=== PATIENT | female | born 1985 | race American Indian/Alaskan Native ===

== ENCOUNTER 2018-04-03 11:58 | Emergency (ER) | payer BC ==
[2018-04-03 12:53] LABS: HCG Qualitative,Urine Negative (Negative)
[2018-04-03 13:06] LABS: Bacteria,Urine 1+ /HPF (Negative); Bilirubin,Urine NEG (Negative); Blood,Urine NEG (Negative); Color,Urine Yellow (Yellow); Mucus,Urine FEW /HPF; Protein,Urine <15 mg/dL mg/dL (Negative); WBC,Urine < 1.0 /HPF (0.0-6.0)
--- NOTE | 2018-04-03 15:08 | Emergency Department Report ---
Minor Respiratory - HPI Chief Complaint: Earache Stated Complaint: LEFT SIDE OF FACE SWOLLEN Time Seen by Provider: 04/03/18 14:26 Duration: 11 days Pain Location: Ear (bilateral ears) Severity: severe (7/10) Minor Respiratory: Yes Rhinorrhea (congestion and clear drainage), Yes Able to Tolerate Fluids, Yes Ear Pain (lateral), No Sore Throat, No Cough, No Sick Contacts, No Hemoptysis, No Chest Pain, No Shortness of Breath, No Fever Other History: This is a 32-year-old female here complaining of earache that has been going on for over 11 days. She says she went to his doctor and to put her on Bactrim DS for ear infection and also they treated her for other ear infection with ear drop. She said her ears has not suffered in at 7 out of 10 and achy worse with talking and chilling. Denies any trauma to ears. Denies discharge from ears. Denies any drainage from ears. She took Bactrim DS and Motrin without any relief. Pain is exacerbation by eating and talking and and no alleviating factors. She is also saying that she has some facial swelling inside her ear bilaterally. Denies any cough, congestion, shortness of breath, sore throat. She reports nasal congestion and runny nose. Negative fever or chills or nausea or vomiting. Denies any headache. ED Review of Systems ROS: Stated complaint: LEFT SIDE OF FACE SWOLLEN Other details as noted in HPI Constitutional: denies: chills, fever Eyes: denies: eye pain, eye discharge, vision change ENT: ear pain, congestion. denies: throat pain, dental pain, hearing loss, epistaxis Respiratory: denies: cough, shortness of breath, SOB with exertion, SOB at rest , stridor, wheezing Cardiovascular: denies: chest pain, palpitations, edema, paroxysmal nocturnal dyspnea Endocrine: no symptoms reported Gastrointestinal: denies: abdominal pain, nausea, vomiting, diarrhea Musculoskeletal: denies: back pain, joint swelling, arthralgia Skin: denies: rash, lesions Neurological: denies: headache, weakness, vertigo Hematological/Lymphatic: denies: easy bruising ED Past Medical Hx - Past Medical History Previous Medical History?: Yes Hx Hypertension: Yes - Surgical History Past Surgical History?: Yes Additional Surgical History: lumpectomy - Family History Family history: hypertension - Social History Smoking Status: Never Smoker Substance Use Type: None - Medications Home Medications: Home Medications Medication Instructions Recorded Confirmed Last Taken Type Amoxicillin/K Clav Tab [Augmentin 1 tab PO Q12HR #20 tab 04/03/18 Unknown Rx 875MG TAB] Cetirizine HCl [ZyrTEC] 10 mg PO QDAY 21 Days #21 04/03/18 Unknown Rx tab.rapdis Ibuprofen [Motrin] 600 mg PO Q8H PRN #12 tablet 04/03/18 Unknown Rx Minor Respiratory Exam - Exam General: Vital signs noted. No distress. Alert and acting appropriately. This is a 32-year-old female well-nourished well-developed in no acute distress. HEENT: Yes Moist Mucous Membranes (uvula is midline, oral airways 8/10 and tongue is normal.), Yes Rhinorrhea (nasal congestion with erythema and clear drainage), No Pharyngeal Erythema, No Pharyngeal Exudates, No Conjuctival Injection, No Frontal Tenderness, No Maxillary Tenderness Ear: Both TM Bulge, Both TM Erythema (loss of bony landmark), Neither EAC Pain, Neither EAC Discharge Neck: Yes Supple (no C-spine tenderness, full range of motion. No mastoid bone tenderness), No Adenopathy (posterior auricular , bilateral) Lungs: Yes Good Air Exchange (CTAB), No Wheezes, No Ronchi, No Stridor, No Cough , No Labored Respirations, No Retractions, No Use of Accessory Muscles, No Other Abnormal Lung Sounds Heart: Yes Regular (s1,s2), No Murmur Abdomen: Yes Normal Bowel Sounds (in all quadrants), No Tenderness, No Peritoneal Signs Skin: No Rash, No Edema Neurologic: Alert and oriented 3, no GCS 15, normal gait . Romberg and negative pronator drift Musculoskeletal: Unremarkable. No cce. + 2 pulses in all extremities, no neurovascular compromise ED Course Vital Signs 04/03/18 12:13 Temperature 98 F Pulse Rate 99 H Respiratory 16 Rate Blood Pressure 164/101 O2 Sat by Pulse 96 Oximetry - Reevaluation(s) Reevaluation #1: 04/03/18 16:07 Patient given Augmentin 875 mg by mouth 1 and Motrin 800 mg by mouth 1 for ear pain. This will treat ear infection and her ear pain is better. ED Medical Decision Making - Lab Data Lab Results 07/27/18 Range/Units 12:26 Urine Color Yellow (Yellow) Urine Turbidity Clear (Clear) Urine pH 6.0 (5.0-7.0) Ur Specific [place] 1.018 (1.003-1.030) Urine Protein <15 mg/dl (Negative) mg/dL Urine Glucose (UA) 150 (Negative) mg/dL Urine Ketones Neg (Negative) mg/dL Urine Blood Neg (Negative) Urine Nitrite Neg (Negative) Ur Reducing Substances Not Reportable Urine Bilirubin Neg (Negative) Urine Ictotest Not Reportable Urine Urobilinogen 2.0 (<2.0) mg/dL Ur Leukocyte Esterase Neg (Negative) Urine WBC (Auto) < 1.0 (0.0-6.0) /HPF Urine RBC (Auto) 3.0 (0.0-6.0) /HPF U Epithel Cells (Auto) 1.0 (0-13.0) /HPF Urine Bacteria (Auto) 1+ (Negative) /HPF Urine Mucus Few /HPF Urine HCG, Qual Negative (Negative) - Medical Decision Making This is a 32-year-old patient here today reporting that she is having ear pain and was seen and treated with extremity abscess which did not help. She says she also was treated with antibiotic eardrops which cleared up her out ear infection but her inner ear infection she has thinks is still there. Denies any loss of hearing. She is also having nasal congestion. Patient was examined and found to have bilateral TM congested with erythema and loss of bony landmark, negative perforation, bilateral EAC normal exam, there is a mucosa congested, pale with clear drainage. She has postauricular lymphadenopathy bilaterally. Her lungs, mouth and cardiac exam is normal. Extremity exam is normal. Patient has urinalysis and urine test done which were both normal but negative . I discussed lab results, diagnosis and treatment plan. She was started on Motrin and antibiotic and emergency room without any adverse reaction. She understands diagnosis and medication. I am uncertain why she had urinalysis and urine test done and patient does not know why. Bilateral otitis media-started on Augmentin and will continue Augmentin to go home Bilateral or otalgia-Tylenol and Motrin which made. Better and will continue and Motrin to go home. PT educated on medication, diagnosis, treatment plan and need for follow-up. Patient discharged home in stable condition. Vital signs are stable she is afebrile and her pain is controlled. Blood pressure was slightly elevated and upon admission but blood pressure stable at present. She is nontoxic in appearance is that she feels better. Discharge home to follow up with her primary care physician which she says she does have one and 3 days. Patient discharged home with prescription for Zyrtec, Flonase Augmentin and Motrin. - Differential Diagnosis mastoiditis, otitis media, otitis externa, sinusitis, rhinitis Critical care attestation.: If time is entered above; I have spent that time in minutes in the direct care of this critically ill patient, excluding procedure time. ED Disposition Clinical Impression: Otalgia, bilateral Rhinitis Qualifiers: Rhinitis type: unspecified Qualified Code(s): J31.0 - Chronic rhinitis Otitis media follow-up, not resolved Qualifiers: Laterality: bilateral Qualified Code(s): H66.93 - Otitis media, unspecified, bilateral Disposition: DC- TO HOME OR SELFCARE Is pt being admited?: No Does the pt Need Aspirin: No Condition: Stable Instructions: Allergic Rhinitis (ED), Earache (ED), Otitis Media (ED) Additional Instructions: Please follow-up with your primary care physician in 3 days and if he cannot follow-up the primary care physician follow-up at [facility] Take antibiotic as prescribed Take Motrin as prescribed Take Zyrtec and Flonase for nasal congestion Flush nostrils out with saline nasal wash and this will help to relieve congestion. Referrals: PRIMARY CARE [Primary Care Provider] - 04/06/18 [facility] [Outside] - 04/06/18 Forms: Work/School Release Form(ED)
[2018-04-03] MEDS ORDERED: MOTRIN PO ONE (15:12)
[2018-04-03] MEDS ORDERED: AUGMENTIN 875 MG PO ONE (15:12)
[2018-04-03 16:09] VITALS: BP 140/78
== END 2018-04-03 16:41 | disposition home or self-care (01) ==
LOC: ED 11:58
DX: H66.93 Otitis media, unspecified, bilateral (principal); J31.0 Chronic rhinitis; I10 Essential (primary) hypertension
CPT/HCPCS: 81001; 81025; 99283